=== PATIENT | female | born 1970 | race Caucasian/White ===

== ENCOUNTER 2017-10-27 05:45 | Inpatient (IN) ==
[2017-10-27] MEDS ORDERED: Nasal Sanitizer POPSWAB ampule 3 AMP (Nozin) PREOP DOSE ENOS SCH (06:00)
[2017-10-27] MEDS ORDERED: Lactated Ringers 1,000 ML PRIMARY IV ONE ×3 (06:00→15:28)
[2017-10-27] MEDS ORDERED: LIDOCAINE W/ SODIUM BICARB 0.5 ML SYR SUBD ONE (06:00)
[2017-10-27] MEDS ORDERED: ceFAZolin Inj 2gm (Premix) 2 GM/50 ML BAG IV ONE ×2 (06:00→06:09)
[2017-10-27] MEDS ORDERED: LIDOCAINE W/ SODIUM BICARB 0.5 ML SYR ONE (06:09)
[2017-10-27] MEDS ORDERED: Vancomycin Inj 1gm vial ONE ×3 (06:09→13:51)
[2017-10-27] MEDS ORDERED: Sodium Chloride 0.9% 0 ML IV ONE (06:09)
[2017-10-27 06:21] LABS: URINE SPECIFIC GRAVITY - MAN 1.015
[2017-10-27] MEDS ORDERED: Sodium Chloride 0.9% 250 ML ONE ×2 (06:25→10:56)
[2017-10-27] MEDS ORDERED: ATROPINE SULFATE 0.4 MG/1 ML VIAL IVP PRN (06:37)
[2017-10-27] MEDS ORDERED: LIDOCAINE W/ SODIUM BICARB 0.5 ML SYR SUBD PRN (06:37)
[2017-10-27] MEDS ORDERED: Ondansetron ODT Tab 8 MG TAB PO PRN (06:37)
[2017-10-27] MEDS ORDERED: ONDANSETRON 4 MG/2 ML VIAL IVP PRN ×2 (06:37→17:24)
[2017-10-27] MEDS ORDERED: fentaNYL Inj 100 MCG/2 ML VIAL IVP PRN (06:37)
[2017-10-27] MEDS ORDERED: IPRATROPIUM/ALBUTEROL SULFATE 3 ML NEB NEB ONE (06:37)
[2017-10-27] MEDS ORDERED: Acetaminophen 1000mg Inj 1,000 MG/100 ML VIAL IV ONE (06:38)
[2017-10-27] MEDS ORDERED: Sodium Chloride 0.9% vial 40 ML ONE (06:43)
[2017-10-27] MEDS ORDERED: fentaNYL Inj 250 MCG/5 ML VIAL ONE (06:44)
[2017-10-27] MEDS ORDERED: MIDAZOLAM 5 MG/1 ML ONE (06:44)
[2017-10-27] MEDS ORDERED: REMIFENTANIL 1 MG/1 ML IV ONE ×3 (06:44→13:06)
[2017-10-27] MEDS ORDERED: Gentamicin Inj 40 MG/ML VIAL ONE ×2 (06:44→13:51)
[2017-10-27] MEDS ORDERED: BACITRACIN 50,000 UNIT VIAL IRRIG ONE ×5 (06:44→13:51)
[2017-10-27] MEDS ORDERED: Sodium Chloride 0.9% vial 10 ML ONE ×4 (06:45→13:40)
[2017-10-27] MEDS ORDERED: LIDOCAINE MPF 2% - 5 ML (20 MG/1 ML) ONE (06:52)
[2017-10-27] MEDS ORDERED: Propofol 2,000 MG/200 ML VIAL IV ONE (06:58)
--- NOTE | 2017-10-27 07:00 | EKG ---
[address] [address] Measurements Intervals [place] Rate: 54 P: 58 ID: [id number] QRS: 49 QRSD: 108 T: 45 QT: 441 QTc: 427 Interpretive Statements SINUS BRADYCARDIA WITH SINUS ARRHYTHMIA No previous ECG available for comparison Electronically Signed On 10-27-17 09:19:37 MDT by Ilya Johnson MD [email or web address]
[2017-10-27] MEDS ORDERED: ROCURONIUM 10 MG/1 ML - 5 ML VIAL IVP ONE (07:10)
[2017-10-27] MEDS ORDERED: KETAMINE 100 MG/1 ML - 5 ML ONE (07:15)
[2017-10-27] MEDS ORDERED: BUPIVACAINE 0.25% W/ EPI - 10 ML VIAL ONE ×2 (08:14→08:42)
[2017-10-27] MEDS ORDERED: ePHEDrine Inj 50 MG/ML AMP ONE (08:26)
[2017-10-27] MEDS ORDERED: Propofol 1,000 MG/100 ML VIAL IV ONE ×2 (10:39→13:22)
[2017-10-27] MEDS ORDERED: Sodium Chloride 0.9% vial 20 ML ONE (13:51)
[2017-10-27] MEDS ORDERED: Lactated Ringers 2,000 ML PRIMARY IV ONE (14:01)
[2017-10-27] MEDS ORDERED: HYDROmorphone 2 MG/1 ML ONE (15:33)
[2017-10-27] MEDS: HYDROmorphone 2 MG/1 ML IVP PRN ×3 (15:44→16:20)
--- NOTE | 2017-10-27 15:54 | GEN.OPNOTE ---
Operative Note Surgery Date: 10/27/17 Preoperative Diagnosis: 1.) Chronic low back pain. 2.) Chronic right leg pain. 3.) Multilevel degenerative disc disease; L3-4, L4-5, L5-S1. 4.) Multilevel lumbar spondylosis; facet arthopathy L3-4 , L4-5, L5-S1. 5.) Bilateral L5-S1 neuroforaminal stenosis. Postoperative Diagnosis: Same. Procedure: 1.) Partial laminectomy of L3 with medial facetectomies and proximal foraminotomies bilaterally. 2.) Complete laminectomy of L4 with medial facetecomies and proximal foraminotomies bilaterally. 3.) Complete laminectomy of L4 with medial facetectomies and proximal foraminotomies bilaterally. 4.) L3 -4 discectomy with arthrodesis of the L3 and L4 endplates in preparation for fusion of the anterior aspect of the spinal column at the L3-4 level from a posterior approach. 5.) L4-5 discectomy with arthrodesis of the L4 and L5 endplates in preparation for fusion of the anterior aspect of the spinal column at the L4-5 level from a posterior approach. 6.) L5-S1 discectomy with arthrodesis of the L5 and S1 endplates in preparation for fusion of the anterior aspect of the spinal column at the L5-S1 level from a posterior approach. 7.) Insertion of a 11mm x 11mm x 26mm Tritanium PL machined titanium cage filled in the center with autograft into the L3-4 interspace for fusion of the L3-4 interspace. 8.) Insertion of a 11mm x 11mm x 26mm Tritanium PL machined titanium cage filled in the center with autograft into the L4-5 interspace for fusion of the L4-5 interspace. 9.) Insertion of a 10mm x 11mm x 26mm Tritanium PL machined titanium cage filled in the center with autograft into the L5-S1 interspace for fusion of the L5-S1 interspace. 10.) Posterolateral arthrodesis, L3-4 bilaterally in preparation for posterolateral fusion. 11.) Posterolateral arthrodesis, L4-5 bilaterally in preparation for posterolateral fusion. 12.) Posterolateral arthrodesis, L5-S1 bilaterally in preparation for posterolateral fusion. 13.) Posterolateral instrumention L3-S1 bilaterally using the [employer] Lisa 3 pedicle screw and marlo system. 14.) Use of autograft harvested from the same incision, cleaned of soft tissue and morselized for the interbody and posterolateral fusion portions of the procedure. 15.) Use of 20cc of Karine Vitoss synthetic bone product (allograft ) for posterolateral fusion. 16.) Use of 5cc of Cerapedics I-factor sythetic bone product (allograft) for interbody and posterolateral fusion. 17.) Use of 20cc of [place] BIO DBM PLUS putty w/cancellous (allograft) for interbody and posterolateral fusion. 18.) Use of intra-operative [employer] neuronavigation system for placement and confirmation of the correct placement of all pedicle screws. 19.) Use of intra-operative fluoroscopy for localization of correct surgical levels and for final confirmation of the position of the intervertebral cages and final confirmation of the posterolateral hardware elements. 20.) Use of intra-operative neuromonitoring to assure correct placement of pedicle screws without close proximity to nerve structure. Surgeon: Isaiah Jeffery MD Manager Financial Services: KEVAN Perez Anesthesia Provider: Laila Spann CRNA Anesthesia Type: General Estimated Blood Loss (mL): 800 Fluids: 3000 cc Lactated Ringers. 500 cc Hespan Pathology: None. Indications: Chronic low back pain. Multilevel lumbar degenerative changes. Failure of non-operative therapies to adequately or durable address symptoms. Findings: Multilevel facet arthropathy/hypertrophy most advanced L4-5. Scar tissue tethering of right L5 and S1 nerve roots to surrounding structure ( disc/pedicle/bony canal). Bilateral lateral recess stenosis secondary to bony arthropathy and ligamentous hypertrophy, greater then expected by pre-operative imaging. Complications: None. Operative Summary: Ms. Alamo was met in the preoperative area. The procedure to be performed was confirmed with Ms. Alamo and her and they were in agreement on the procedure to be performed. Any questions that they had were answered before she was taken back to the operating room suite. Mrs. Alamo was brought back to the operating room suite. She was put in under general anesthesia and intubated by the anesthesia staff. She had a Rosales catheter placed or bladder for the procedure. She had pneumatic compression hose placed on her lower legs bilaterally. Ms. Alamo was carefully rolled over onto the Fernando surgical table with her arms gently positioned upwards with her shoulders abducted less than 90. Her arms were well-padded with foam padding on top of the padding of the surgical armboards. Her chest and axilla was checked to make sure that there was no pressure over the region of the brachial plexus bilaterally. Her breasts were checked be below the chest. The Fernando table no pressure points of the nipples. Her Rosales catheter was checked be free from kinks. Her pneumatic compression hose was attached and pneumatic compression device. The C-arm fluoroscopy was used to help localize the skin incision for the approach to the intended surgical levels. The intended skin incision was demarcated with a skin marker incorporating her surgical incision from her previous lumbar surgical procedures. She was prepped and draped in the usual and standard fashion. She was given 2 g of Ancef and a gram of vancomycin IV for perioperative antibiosis. She was given 10 mg of Decadron IV. A standard surgical timeout was performed identifying the correct patient, the patient's symptoms, the correct procedure, and the correct equipment available for the procedure. The intended skin incision was injected subcutaneously with quarter percent Marcaine with 1 200,000 epinephrine. The skin was incised with a 10 blade scalpel and all dermal and superficial bleeding points were controlled with bipolar cautery. The dissection was continued through the subcutaneous tissue down to the lumbosacral fascia. The lumbosacral fascia was incised along the borders of the spinous processes and subperiosteal dissection was performed down the spinous processes and out over out over the lamina. When the inferior aspect of the lamina became identified, a [place] 4 was placed underneath the lamina and the level was identified using lateral fluoroscopy. Continued dissection was performed in a subperiosteal fashion with the final exposure being from the L2 lamina to the upper part of the sacrum bilaterally as well as some out laterally over the L2-3 L3-4 L4-5 and L5-S1 facet joints as well as the L3 L4 L5 transverse processes and the sacral alar bilaterally. The soft tissue was cleaned over the posterior aspect of the spine using Bovie cautery and a large Leksell rongeur. Extensive decortication was then performed of the lateral aspect of the L2-3 facet joint bilaterally and the posterior and lateral aspects of the L3-4 L4-5 and L5-S1 facet joints bilaterally as well as the L3-L4 and L5 transverse processes and the sacral alar bilaterally. The decortication was performed with the [employer] Rick high- speed drill with a matchstick bit. The bone dust created was collected and saved to be used as autograft for the fusion portion of the procedure. The [employer] neuro navigation reference arc was securely attached to the L2 spinous process and a spin was performed with the Lycera fluoroscopy unit and [employer] neuro navigation system. The [employer] neuro navigation pedicle probe was then used to cannulate the L3, L4, L5, and S1 pedicles bilaterally. The internal aspect of the pedicles were palpated with a ball-tip instrument a sure that there were no cortical breaches. The pedicles were then palpated with the appropriate size [place] Martin 3 pedicle tap. The internal aspects of the pedicles were then palpated again with a small ball-tip instrument. The pedicle screws are then placed. 6.5 x 60 mm pedicle screws were placed into the L3 and L4 pedicles bilaterally. 7.5 x 55 mm pedicle screws are placed into the L5 pedicles bilaterally. 7.5 x 50 mm pedicles screws were placed into the sacrum bilaterally. All pedicle screws obtained good purchase in the pedicle and vertebral body bone at each level bilaterally. The pedicle screws are then all interrogated with triggered EMGs. All demonstrated to be of sufficiently high impedance indicating that there were not close proximity to nerve structures. All screws were 24 mA or higher in impedance. Another spin was performed at the 3-D fluoroscopy unit providing further confirmation that the pedicle screws were indeed contained within the pedicles at each level bilaterally and the pedicle screws were bi-cortical or nearly bi-cortical in purchase as intended. Attention was turned to the decompression portion of the procedure. The L4, L5 , and the caudal aspect of the L3 spinous processes were removed with a large Leksell rongeur. A partial laminectomy of L3, and complete laminectomies of L4 and L5 were performed. Medial facetectomies and proximal foraminotomies were performed at each level. Surgical findings included facet arthropathy and hypertrophy at L3-4 L4-5 and L5-S1 most advanced and hypertrophied at L4-5 bilaterally. There was bilateral lateral recess stenosis secondary to bonyu arthropathy and ligamentous hypertrophy, greater than expected based on the preoperative imaging. There was scar tissue tethering the right L5 and S1 nerve roots to the surrounding structures including the L5-S1 disc space, the S1 pedicle, and the posterior aspect of the L5 vertebral body and posterior aspect of the S1 vertebral body. The nerve roots were completely detached from their scarred tissue attachments. The medial facetectomies at L3-4 ,L4-5, and L5-S1 on the left were extended laterally to provide the proper exposure needed for the discectomy and interbody fusion portions of the procedure at these levels. This was performed with a high-speed drill with a matchstick bit. A [place] 4 instrument was then used to carefully dissect the soft tissue adjacent to the takeoffs of the L4, L5, and S1 nerve roots identifying respectively the L3-4 L4-5 and L5-S1 disc spaces. The transversing nerve roots at each level and the thecal sac were gently retracted with a Estephania'Amy nerve root retractor. Epidural veins over the disc space at each level were coagulated with bipolar cautery turned down to a low setting and were then cut with microscissors. Annulotomy was then performed in the L3-4 L4-5 and L5-S1 disc spaces on the left with a 15 blade scalpel. Disc material was removed from each shot disc space with the pituitary rongeur. Additional disc and cartilaginous endplate was removed at each level with the K2 disc space sabine starting with a 7 mm disc space shaver and increasing in 1 mm increments to a 10 mm disc space shaver at the L3-4 level and L4-5 level and to a 9 mm disc space shaver at the L5-S1 level. The large down-biting curet was then used to loosen disc laterally in each of the disc spaces bilaterally but the fragments being removed with a pituitary rongeur. The large down-biting Mahsa curette was then used to decorticate the L3 and L4 endplates at the L3-4 level, the L4 and L5 endplates at the L4-5 level, and the L5 and S1 endplates at the L5-S1 level. The spaces were irrigated out with bacitracin irrigation. Approximately 3-3 and half cc of a mixture of surgery. Factor synthetic bone product mixed with [place] BIO DBM plus putty with cancellous chips was placed into each interspace and moved anteriorly with a bone tamp. He proper size lumbar interbody cages were selected for each level. A 11 mm x 11 mm x [address] lumbar interbody cage was selected for the L3-4 level. The machined cage was filled in the center with autograft. The cage was then inserted into the L3-4 interspace using the insulation board head saw operator. The cage was gently countersunk and rotated with a bone tamp and mallet. The cage obtained good purchase between the L3 and L4 endplates. The final position of the cage was confirmed with lateral fluoroscopy. A 11 mm x 11 mm x [address] lumbar interbody cage was selected for the L4-5 level. The machined cage was filled in the center with autograft. The cage was then inserted into the L4-5 interspace using the insulation board head saw operator. The cage was gently countersunk and rotated with a bone tamp and mallet. The cage obtained good purchase between the L4 and L5 endplates. The final position of the cage was confirmed with lateral fluoroscopy. A 10 mm x 11 mm x [address] lumbar interbody cage was selected for the L5-S1 level. The cage was filled in the center with autograft. The cage was then inserted into the L5-S1 interspace using the insulation board head saw operator. The cage was then gently countersunk and rotated with a bone tamp and mallet. The cage obtained good purchase between L5 and S1 endplates. The final position of the cage was confirmed with lateral fluoroscopy. Attention was then turned back to the instrumentation portion of the procedure. Two 6 mm x 90 mm pre-bent, lumbar lordotic [place] Martin 3 rods were selected and placed into the t[place]ips of the L3 L4 L5 and S1 pedicle screws bilaterally. Set screws were placed over the rods in the tulips of the pedicle screws and were tightened down hand tight and were then tightened down to the final tighteness using the torque counter torque device. The surgical site was then pulse lavaged with 3 L of vancomycin/bacitracin/ gentamicin solution. The surgical site was then irrigated with hydrogen peroxide. Surgical site was then pulse lavaged with another 3 L of vancomycin/ bacitracin/gentamicin solution. The paraspinous musculature was retracted and 10 mL of [place] Vitoss synthetic bone product (allograft) was then placed lateral to the hardware construct from the L3 transverse process to the sacral alar and over the upper part of the sacrum bilaterally. A mixture of the remaining autograft mixed with 30 mL of cancellous bone chips was then splint with half of this product being placed lateral to the hardware construct over the Vitoss synthetic bone product from the L3 transverse process to the sacral alar and over the upper part of the sacrum bilaterally. The remaining mixture of i-factor synthetic bone product ( allograft) mixed with Karine BIO DBM PLUS putty with cancellous chips ( allograft) was then mixed with another 10 mL of Karine BIO DBM PLUS putty with cancellous chips (allograft) and this mixture was split with half of this mixture placed lateral to the hardware construct, over the cancellus bone chips , from the L3 spinous process to the sacral alar and over the upper part of the sacrum bilaterally. The canal and lateral recesses were then inspected for any bone fragments; any identified were removed. The canal and lateral gutters were irrigated with a small amount of bacitracin irrigation which was removed with suction. Surgi- Madan hemostatic agent was placed in the lateral gutters and over all exposed dural elements. A piece of compressed Gelfoam was placed over the canal. A medium Hemovac drain was placed into the the surgical site. The closure portion of the procedure was then begun. The fascia was closed tightly with #1 PDS suture in a interrupted fashion. The surgical site was then irrigated again with bacitracin irrigation. The deep subcutaneous tissue was reapproximated with #1 Vicryl suture in a interrupted fashion. The superficial subcutaneous tissue and dermis was closed with #2-0 Vicryl suture in a inverted interrupted fashion. The Ioban drape was pulled back the skin edges. Final layer. Closure was performed surgical stainless steel moriah. The incision was cleansed with bacitracin soaked sponge and dry sterile dry sponge. The incision was dressed with a Mepilex dressing. The surgical drain was secured with suture. The surgical site drain site was then dressed. All surgical drapes were removed from Ms. Alamo. She was carefully rolled over from the Fernando table onto the PACU stretcher. She was awoken and extubated by the anesthesia staff. She was taken to the recovery room in stable condition. All surgical counts reported as correct by the scrub and circulating personnel. A Physicians Manager Financial Services, Ms. Theresa Anders assisted with the procedure including the exposure and closure portions of the procedure. She also carefully and skillfully retracted the nerve structures during the more critical portions of the procedure such and the discectomy and intervertebral cage placement portions of the procedure.
[2017-10-27] MEDS: Lactated Ringers 1,000 ML PRIMARY IV SCH ×2 (16:00→20:17)
--- NOTE | 2017-10-27 17:01 | CRNA.PROGR ---
Anesthesia Time - Procedure/Recovery Time Start Date: 10/27/17 End Date: 10/27/17 Anesthesia : Time In: 07:42 Anesthesia : Time Out: 15:29 Anesthesia : Total Time: 467 - Total Anesthesia Time Total Anesthesia Time (minutes): 467 - Other Weight: 74.389 kg Height: 5 ft 7 in Body Mass Index (BMI): 25.7 Physical Status: P2 (tobacco) Anesthesia Type: General Anesthesia : ET
--- NOTE | 2017-10-27 17:02 | CRNA.PROGR ---
Anesthesia Recovery Phase I - Post Anesthesia Evaluation Patient's Condition on Arrival in Phase I: Stable Patient's Condition on Arrival in Phase II: Stable (stable) Pain Level: 4
--- NOTE | 2017-10-27 17:02 | CRNA.PROGR ---
Post Anesthesia Phase II - Post Anesthesia Phase II Patient Stable and Discharged To: Med/Surg Care Assumed By Surgeon: Isaiah Jeffery MD Temperature: 96.9 F Pulse Rate: 73 Respiratory Rate: 12 Blood Pressure: 65/52 Pulse Ox: 98 Total Bhakti Score at Discharge: 9 Post Anesthesia Discharge Criteria Met: Yes
[2017-10-27] MEDS ORDERED: MAGNESIUM CITRATE 296 ML SOLUTION PO PRN (17:24)
[2017-10-27] MEDS ORDERED: MAGNESIUM 400 MG/5 ML - 30 ML (MILK OF MAGNESIA) PO PRN (17:24)
[2017-10-27] MEDS ORDERED: Senna Tab 8.6 MG TAB PO PRN (17:24)
[2017-10-27] MEDS ORDERED: oxyCODONE/APAP 10/325 Tab 1 EACH TAB PO PRN (17:24)
[2017-10-27] MEDS ORDERED: Ondansetron ODT Tab 4 MG TAB PO PRN (17:24)
[2017-10-27] MEDS ORDERED: Senna/Docusate Tab 1 TAB TAB PO PRN (17:24)
[2017-10-27] MEDS ORDERED: BISACODYL 5 MG TABLET PO PRN (17:24)
[2017-10-27] MEDS ORDERED: Vancomycin-PHA to Dose IV PRN (17:24)
[2017-10-27] MEDS ORDERED: CYCLOBENZAPRINE 10 MG TABLET PO PRN (17:24)
[2017-10-27] MEDS ORDERED: Sodium Chloride 0.9% 500 ML PRIMARY IV ONE (19:19)
[2017-10-27] MEDS: ceFAZolin Inj 1 GM in Sodium Chloride 0.9% 100 ML IV SCH (19:25)
[2017-10-27 19:47] LABS: Hemoglobin [HGB] 8.6 g/dL (12.0-16.0)
[2017-10-27] MEDS: oxyCODONE/APAP 10/325 Tab 1 EACH TAB PO PRN ×2 (20:04→23:34)
[2017-10-27] MEDS ORDERED: Sodium Chloride 0.9% 1,000 ML PRIMARY IV ONE (22:11)
--- NOTE | 2017-10-27 22:21 | PDOC ---
HPI - History of Present Illness Date of Service: 10/27/17 Time of Service: 22:16 Chief Complaint: Back pain and postoperative History of Present Illness: This very pleasant 46-year-old female who presented here for of lumbar fusion performed by Dr. Jeffery today. Please see his surgical notes for further details of the procedure. It was L3-S1. Postoperatively, the patient states that she's in postsurgical pain but she states that her preoperative pain is almost completely dissipated and gone. She states that she normally run some low blood pressures and has commonly been told that she has systolic pressures in the 90s and low 100s in the time of surgeries. She has had chronic anemia and her hemoglobin was around 8.6 here today. She was given some fluids in efforts to bring up her blood pressure. She is a symptomatically, has no chest pain, no shortness breath, no lightheadedness or dizziness. She details to me that she's had visits with neurology in the past and is been diagnosed with fibromyalgia, complex regional pain syndrome, and chronic pain syndrome. Interestingly, she manages this with no opiates, and is on Cymbalta currently. She has a strong family history of rheumatoid arthritis but has not been worked up extensively for that. I was asked to see the patient in terms of assessing and advising on her depression, hemoglobin, and chronic pain issues in the setting of her back surgery. Past Medical History Medical History: 1. Complex regional pain syndrome. 2. Depression. 3. Chronic low back pain. 4. Tobacco abuse. 5. Possible fibromyalgia. 6. Chronic anemia of unclear etiology. Patient details no prior history of EGD or colonoscopy. Surgical History: 1. Hysterectomy with one ovary removed. 2. Knee scopes. 3. Carpal tunnel syndrome with surgery on the left side. 4. Neck surgery. 5. Back surgery progress. 6. Tonsillectomy and adenoidectomy Pertinent Family History: Significant for degenerative joint disease in her parents. Mother had MS Past Social History: Smokes about a half pack per day. Does not drink alcohol. . Has twins processes biologic children) that are healthy. Has multiple stepchildren and "adopted children" that are DESCRIBED as healthy. She currently does not work but did work for [employer] in [place], [place]. Lives in [place], [place]. Tobacco Use: Current Every Day Smoker In the Past 12 Months, Have Used or Abuse Any of the Following Substance: None Alcohol Use: None Medication / Allergies Home Medications: Home Medications 3 Medication Instructions Recorded Confirmed Type cholecalciferol (vitamin D3) 1,000 250 unit PO QDAY cap 08/25/17 10/27/17 History unit capsule duloxetine 60 mg capsule,delayed 60 mg PO QDAY 08/25/17 10/27/17 History release magnesium 250 mg tablet 500 mg PO QDAY tab 08/25/17 10/27/17 History naproxen sodium 220 mg capsule 220 mg PO BID 08/25/17 10/27/17 History hydrocodone 5 mg-acetaminophen 325 1 tab PO Q4-6H PRN 08/30/17 10/27/17 History mg tablet Duloxetine HCl [Cymbalta] 20 mg PO DAILY 10/27/17 10/27/17 History Allergies/Adverse Reactions: Allergies 3 Allergy/AdvReac Type Severity Reaction Status Date / Time No Known Allergies Allergy Verified 10/27/17 17:32 Review of Systems - Constitutional Constitutional: REPORTS: Diffuse Myalgias (Chronic. States that she has seen a stone breaker before.) - Respiratory Respiratory: REPORTS: Negative System Review - Cardiovascular Cardiovascular: REPORTS: Negative System Review - Gastrointestinal Gastrointestinal / Abdominal: REPORTS: Negative System Review - Genitourinary Genitourinary: REPORTS: Negative System Review - Gynecological Gynecological: REPORTS: Other (The patient thinks that she could be perimenopausal and she is working on this with her primary care physician.) - Hematlogic / Lymphatic Hematologic / Lymphatic: REPORTS: Other (Chronic anemia) - Neurological Neurologic: REPORTS: Headache (Chronic) Exam - Vitals Vital Signs: Vital Signs Vital Signs - Last Taken Temperature 10/27/17 21:00 Pulse Rate 80 10/27/17 21:00 Respiratory Rate 20 10/27/17 21:00 Blood Pressure 86/55 10/27/17 21:00 Pulse Ox 94 10/27/17 21:00 Height 5 ft 7 in Weight 164 lb Selected Entries 10/27/17 19:15 10/27/17 20:25 Temperature 98.7 F 98.5 F - General General Appearance: No Acute Distress, Cooperative - Head Head Exam: Normal Inspection, Normocephalic, Atraumatic - Eye Eye Exam: POSITIVE: No Scleral Icterus - ENT ENT Exam: POSITIVE: Mucous Membranes Moist - Neck Neck Exam: Normal Inspection - Respiratory Respiratory Exam: POSITIVE: Clear to Auscultation - Bilaterally, Breathing Non Labored - Cardiovascular Cardiovascular Exam: POSITIVE: RRR, No Murmur, No Clicks, No Gallops, No Rubs, No JVD - GI/Abdominal GI/Abdominal Exam: POSITIVE: Non Tender, Non Distended, Soft - Rectal Rectal Exam: POSITIVE: Deferred - External Exam: POSITIVE: Deferred Exam: POSITIVE: Deferred - Extremities Extremities Exam: POSITIVE: No Clubbing Present, No Edema Present, No Cyanosis Present - Back Additional Back Exam Details: Lower midline back incision is dressed, Hemovac drain is in place, dressing is clean, dry, intact - Neurological Neurological Exam: POSITIVE: Alert, Oriented x 3, No Facial Droop, Speech Intact / Clear, Moves All Extremities Equally - Psychiatric Psychiatric Exam: POSITIVE: Normal Affect, Normal Mood Results - Labs CBC and BMP: 10/27/17 19:45 Assessment and Plan - Patient Problems (1) Postoperative hypotension Current Visit: Yes Status: Acute Code(s): I95.89 - Other hypotension (2) Complex regional pain syndrome Current Visit: Yes Status: Acute Comment: Patient states that she's had several nerve studies done with Dr. Rock. I do not know the results of those. Qualifiers: Complex regional pain syndrome type: type I Complex regional pain syndrome affected site: unspecified Qualified Code(s): G90.50 - Complex regional pain syndrome I, unspecified (3) Chronic anemia Current Visit: Yes Status: Acute Code(s): D64.9 - Anemia, unspecified (4) Depression Current Visit: Yes Status: Acute Code(s): F32.9 - Major depressive disorder , single episode, unspecified Qualifiers: Depression Type: other depression Qualified Code(s): F32.89 - Other specified depressive episodes (5) Tobacco abuse Current Visit: Yes Status: Acute Code(s): Z72.0 - Tobacco use (6) Tobacco abuse counseling Current Visit: Yes Status: Acute Code(s): Z71.6 - Tobacco abuse counseling - Assessment / Plan Additional Assessment/Plan Details: Terms of the hypotension, I think it's fairly relative and maybe within the patient's normal blood pressure ranges. She is completely asymptomatic. Chronic anemia I do not think this is reflective of blood loss at this time. I would recommend of fluid bolus with normal saline 1 L, and recheck blood pressures. I think we can go ahead and administer IV morphine and continue the patient on a monitor. I'll check CBC in the morning, but I will also had an iron panel, B12 and folate levels. She is had a hysterectomy in the past for fibrocystic disease, and given that she just had surgery, I think we should hold off on thyroid screening, but overall given her age I think she may warrant GI evaluation in the future. I will try to talk to her primary doctor tomorrow if possible to clarify that to further degree. In the meantime, also replace any vitamin deficiencies. Patient is concerned about a potential rheumatoid arthritis story and so I'll do an anti-CCP level and a rheumatoid factor. She is concerned about fibromyalgia and I talked her through the clinical aspects of that diagnosis. This would be an outpatient diagnosis. PT and OT. Given spinal surgery, hold off on DVT prophylaxis with chemical prophylaxis to avoid any complications of hematoma. She has mechanical prophylaxis measures in place. Continue Cymbalta. Thank you for this consult. It will be the hospitalist services pleasure to continue to assess and advise on this patient's medical issues during the hospital stay.
[2017-10-27] MEDS: MORPHINE SULFATE 2 MG/1 ML IVP PRN (22:23)
[2017-10-27] MEDS ORDERED: NICOTINE 14 MG /DAY PATCH TRANSDERM ONE (22:34)
[2017-10-28] MEDS: MORPHINE SULFATE 2 MG/1 ML IVP PRN ×2 (02:06→07:09)
[2017-10-28] MEDS: ceFAZolin Inj 1 GM in Sodium Chloride 0.9% 100 ML IV SCH (02:06)
[2017-10-28] MEDS: oxyCODONE/APAP 10/325 Tab 1 EACH TAB PO PRN ×5 (05:10→21:10)
--- NOTE | 2017-10-28 05:22 | NEURO.PROG ---
Subjective Post Op Day: 1 Pain Management: PO Rosales Catheter: Yes Diet: Regular Ambulating: No Additional Details: Awake and alert. Surgical back pain as expected. Right leg numbness (not new). Heartburn. Denies chest pain, nausea. Moving all extremities well. Full dorsiflexion/plantarflexion bilaterally. PLAN: Continue pain control. To be fitted for a brace(fabric TLSO) today. Rosales catheter out today if up OOB. Continue drain. Repeat Hgb/Hct tomorrow am. Mobilize. Objective : Data - Labs CBC and BMP: 10/27/17 19:45 - Vital Signs Vital Signs and I&O: Vital Signs - Last Taken Temperature 98.0 F 10/28/17 04:50 Pulse Rate 70 10/28/17 04:50 Respiratory Rate 22 10/28/17 04:50 Blood Pressure 81/44 10/28/17 04:50 Pulse Ox 95 10/28/17 04:50 Intake and Output (24hr x 4 totals) 10/25/17 10/26/17 10/27/17 10/28/17 05:59 05:59 05:59 05:59 Intake Total 5120 / 5120 Output Total 3900 / 3900 Balance 1220 / 1220
[2017-10-28 05:56] LABS: BLOOD UREA NITROGEN 10 mg/dL (7-22)
[2017-10-28] MEDS: PANTOPRAZOLE 40 MG TABLET PO SCH (07:09)
[2017-10-28 08:23] LABS: BASOPHILS # (AUTO) 0.02 10*3/UL; BASOPHILS % (AUTO) 0.3 % (0-1); EOSINOPHILS # (AUTO) 0.12 10*3/UL; EOSINOPHILS % (AUTO) 1.7 % (0-8); Hematocrit [HCT] 23.6 % (37.0-47.0); Hemoglobin [HGB] 7.6 g/dL (12.0-16.0); LYMPHOCYTES # (AUTO) 1.57 10*3/uL; MEAN CORPUSCULAR HEMOGLOBIN 32.2 PG (27-31); MEAN CORPUSCULAR HGB CONC 32.2 g/dL (33-37); MEAN PLATELET VOLUME 10.2 FL (7.4-12.2); MONOCYTES # (AUTO) 0.34 10*3/UL (0.3-0.8); MONOCYTES % (AUTO) 4.7 % (5-15); NEUTROPHILS % (AUTO) 71.6 % (50-80); RED BLOOD COUNT 2.36 10^6/uL (4.20-5.40)
[2017-10-28] MEDS: CHOLECALCIFEROL 1000 IU TABLET PO SCH (08:23)
[2017-10-28] MEDS: DULOXETINE 60 MG CAPSULE PO SCH (08:23)
[2017-10-28 08:25] LABS: PLATELET MORPHOLOGY COMMENT NORMAL MORPHOLOGY (NORM); RBC MORPHOLOGY COMMENT NORMAL MORPHOLOGY (NORM); WBC MORPHOLOGY COMMENT NORMAL MORPHOLOGY (NORM)
[2017-10-28] MEDS ORDERED: Patch Removal PATCH TRANSDERM SCH (09:00)
[2017-10-28] MEDS ORDERED: NICOTINE 14 MG /DAY PATCH TRANSDERM SCH (09:00)
[2017-10-28] MEDS ORDERED: DULOXETINE HCL 60 MG PO SCH (09:00)
[2017-10-28] MEDS: POLYETHYLENE GLYCOL 3350 17 GM POWDER PO PRN (09:01)
[2017-10-28] MEDS ORDERED: Sodium Chloride 0.9% 500 ML PRIMARY IV ONE (11:25)
[2017-10-28] MEDS ORDERED: diphenhydrAMINE 25 MG CAPSULE PO ONE (11:25)
[2017-10-28] MEDS ORDERED: predniSONE Tab 20 MG TAB PO ONE (11:25)
[2017-10-28] MEDS ORDERED: ACETAMINOPHEN 325 MG TABLET PO ONE (11:25)
[2017-10-28] MEDS ORDERED: FUROSEMIDE 10 MG/1 ML - 2 ML VIAL IVP ONE (11:25)
[2017-10-28] MEDS: oxyCODONE ER Tab 20 MG TAB PO PRN ×2 (12:09→21:10)
--- NOTE | 2017-10-28 13:57 | CRNA.PROGR ---
Anesthesia Note - Progress Notes Anesthesia Progress Note: Post OP Anesthesia Note Pt is resting in bed. She has been up and ambulating but is not tolerating well R/T low H/H. She is scheduled to get blood this afternoon. She is tolerating a regular diet. She denies any residual problem from the general anesthetic. Current VS are stable. Vital Signs - Last Taken Temperature 98.9 F 10/28/17 13:55 Pulse Rate 86 10/28/17 13:55 Respiratory Rate 16 10/28/17 13:55 Blood Pressure 95/55 10/28/17 13:55 Pulse Ox 97 10/28/17 13:55
--- NOTE | 2017-10-28 14:32 | PTI REPORT ---
Thank you for the referral of Javier Alamo. She was seen on 10/28/17 for an inpatient evaluation status post back fusion. SUBJECTIVE: The patient is a 46-year-old female who lives in [place] who underwent a back fusion yesterday by Dr. Jeffery. The patient was seen in her room this morning complaining of a pain level of 9/10 on the verbal analog scale (0=no pain, 10=worst pain). The patient does live in a bi-level house. We will have to make sure that she is independent in navigating stairs independently. PAST MEDICAL HISTORY: Past medical history can be found in the patient's medical record. OBJECTIVE FINDINGS: Bed mobility/Transfers: The patient needed minimal to assist of one to go from supine to sit and sit to stand. Ambulation: The patient ambulated to the hallway and back with her brace and a walker. Pain: Pain is the patient's limiting factor at this point. She rates her pain as a 9/10 on the verbal analog scale (0=no pain, 10=worst pain). Range of motion: Lower extremity range of motion is within normal limits. She had good dorsiflexion and toe extension with good pulses in both feet. ASSESSMENT: Problem List: Increased pain Decreased ability to complete transfers Decreased ability to complete ambulation Short-Term Goals: To be met by discharge from inpatient: Patient will be able to transfer from bed to stand independently. Patient will be able to ambulate 100 feet independently with least restrictive assistive device. Patient will be able to ascend and descend one flight of stairs with least restrictive assistive device. Long-Term Goals: To be met following discharge from inpatient: Patient will be able to return home to [place] with her . TREATMENT PLAN: Patient will be seen B.I.D during the week and one time per day over the weekend as an inpatient for transfer training, ambulation, pain control, and bracing. INITIAL TREATMENT: Treatment today consisted of the initial evaluation activities only. ERICK
--- NOTE | 2017-10-28 14:49 | PTI REPORT ---
Thank you for the referral of Javier Alamo. She was seen on 10/28/17 for an occupational therapy inpatient evaluation status post lumbar fusion. SUBJECTIVE: The patient is a 46-year-old female who had a lumbar fusion. Prior to admission the patient lived with her in [place] and was independent with all ADLs and functional activities. The patient reports today that she is in a lot of pain. PAST MEDICAL HISTORY: Past medical history can be found in the patient's medical record. OBJECTIVE FINDINGS: General observations: The patient was sitting in chair upon the therapist's arrival. Her blood pressure has been running low and nursing stated that her H& H has been very low. The therapist checked the patient's blood pressure and it was 83/52. Her oxygen was at 95%. Her back brace was on. Range of motion: Active range of motion of upper extremities is within normal limits. Strength: Strength was not assessed secondary to her back precautions and lifting precautions. Activities of daily living: The patient was issued a dietetic technician, sock aide, and shoe horn and demonstration was given; however, the patient's pain level was an 8/10 and she did not want to attempt these at this time. Transfers: The patient requires mod to max assist to come from sit to stand off of the chair. She has a lot of weakness in her upper extremities and she states that her back pain is pretty extreme once she stands up. Once standing, the patient was able to move to the edge of the bed and sit down with the bed in a higher position. Bed mobility: The patient required max assist to move lower extremities to complete her log roll into the bed. She did have the head of the bed raised approximately 45 degrees. ASSESSMENT: Problem List: Increased pain Decreased ability to complete ADLs Decreased ability to complete functional transfers and bed mobility Short-Term Goals: To be met by discharge from inpatient: Patient will be able to complete dressing tasks with min assist. Patient will be able to complete a toilet transfer and toilet hygiene with contact guard assist. Patient will be able to complete a chair transfer with contact guard assist. Patient will be able to complete bed mobility and log rolls into bed with stand by assist. Long-Term Goals: To be met following discharge from inpatient: Patient will demonstrate modified independence with use of adaptive equipment for all lower extremity dressing tasks independently. TREATMENT PLAN: Patient will be seen B.I.D during the week and one time per day over the weekend as an inpatient to address the above goals and objectives. INITIAL TREATMENT: Treatment today consisted of the initial evaluation followed by a functional transfer from chair to stand and stand to bed, all with mod to max assist. The patient was issued adaptive device for improved independence with dressing self as the patient is not to bend over 90 degrees. [facility]
--- NOTE | 2017-10-28 15:39 | PT.PROG ---
Progress Note Progress Note: Patient was receiving a blood transfusion this afternoon therefore was not seen by therapy.
--- NOTE | 2017-10-28 17:13 | PDOC(PROG) ---
Date of Service: 10/28/17 Time of Service: 11:10 Interval History: No complaints of chest pain, shortness breath, nausea or vomiting. Still has bad postsurgical pain. She was placed on higher doses of oxycodone/OxyContin. Her hemoglobin was noted, and I think in a patient with chronic anemia, it may be worth doing blood transfusion and we discussed this at bedside and she agreed. She has never had any EGD or colonoscopy. Objective : Data - Labs CBC and BMP: 10/28/17 04:25 10/28/17 04:25 Additional Lab Results: 10/28/17 10/28/17 04:25 04:25 Iron 44 TIBC 203 L % Saturation 0 L Vitamin B12 Pending Vitamin D 25-Hydroxy 59.1 Serum Folate Pending Objective : Exam - General General Appearance: No Acute Distress, Cooperative Additional General Exam Details: Vital Signs - Last Taken Temperature 98.2 F 10/28/17 17:09 Pulse Rate 67 10/28/17 17:09 Respiratory Rate 16 10/28/17 17:09 Blood Pressure 98/58 10/28/17 17:09 Pulse Ox 96 10/28/17 17:09 - Eye Eye Exam: No Scleral Icterus - ENT ENT Exam: Mucous Membranes Moist - Respiratory Respiratory Exam: Clear to Auscultation - Bilaterally, Breathing Non Labored - Cardiovascular Cardiovascular Exam: RRR, No Murmur, No Clicks, No Gallops, No Rubs, No JVD - GI/Abdominal GI/Abdominal Exam: Normal Bowel Sounds, Non Tender, Non Distended, Soft - Extremities Extremities Exam: No Clubbing Present, No Edema Present, No Cyanosis Present - Neurological Neurological Exam: Alert, Oriented x 3, No Facial Droop, Speech Intact / Clear, Moves All Extremities Equally Assessment and Plan - Patient Problems (1) Postoperative hypotension Current Visit: Yes Status: Acute Code(s): I95.89 - Other hypotension (2) Complex regional pain syndrome Current Visit: Yes Status: Acute Qualifiers: Complex regional pain syndrome type: type I Complex regional pain syndrome affected site: unspecified Qualified Code(s): G90.50 - Complex regional pain syndrome I, unspecified (3) Chronic anemia Current Visit: Yes Status: Acute Code(s): D64.9 - Anemia, unspecified (4) Depression Current Visit: Yes Status: Acute Code(s): F32.9 - Major depressive disorder , single episode, unspecified Qualifiers: Depression Type: other depression Qualified Code(s): F32.89 - Other specified depressive episodes (5) Tobacco abuse Current Visit: Yes Status: Acute Code(s): Z72.0 - Tobacco use (6) Tobacco abuse counseling Current Visit: Yes Status: Acute Code(s): Z71.6 - Tobacco abuse counseling - Assessment / Plan Additional Assessment/Plan Details: Would benefit from an EGD and colonoscopy in the next few months after she heals from the surgery to the evaluate for potential GI blood loss with chronic anemia. Although the iron level is normal at 44, it is a low normal and this really looks like iron deficiency anemia. If that study is negative, I think a hematology consultation for chronic anemia would be in order. I discussed this with the patient and her at bedside. Transfuse 2 units of blood today. CBC in a.m. Awaiting B12 and folate levels. I did do additional labs including a CCP antibody, rheumatoid factor, she is concerned about whether or not she might have rheumatoid arthritis. Her hypertension seems to be a chronic issue. I don't think Midorin at this point as she is not having any presyncopal symptoms, but that could always be considered in the future should she remain relatively hypotensive. She does not appear septic at all. She is asymptomatic other than being somewhat fatigued from her hypotension today. PT and OT.
[2017-10-28] MEDS: DOCUSATE 100 MG CAPSULE PO PRN (21:10)
[2017-10-28] MEDS: Patch Removal PATCH TRANSDERM SCH (21:10)
[2017-10-28] MEDS: NICOTINE 14 MG /DAY PATCH TRANSDERM SCH (21:10)
[2017-10-29] MEDS: oxyCODONE/APAP 10/325 Tab 1 EACH TAB PO PRN ×6 (01:16→20:55)
[2017-10-29 04:18] LABS: Hematocrit [HCT] 31.9 % (37.0-47.0); Hemoglobin [HGB] 10.4 g/dL (12.0-16.0)
[2017-10-29] MEDS: PANTOPRAZOLE 40 MG TABLET PO SCH (06:51)
--- NOTE | 2017-10-29 07:13 | NEURO.PROG ---
Subjective Post Op Day: 2 Pain Management: PO Rosales Catheter: Yes Diet: Regular Ambulating: Yes Additional Details: Awake and alert. Appears comfortable in bed. Surgical pain as expected; states she is more comfortable today. Right leg symptoms improved with surgery. Moving all extremities well. Drain - 200 cc. PLAN: 1.) Continue post-operative pain control. 2.) Continue to mobilize. Objective : Data - Labs CBC and BMP: 10/29/17 03:55 10/28/17 04:25 - Vital Signs Vital Signs and I&O: Vital Signs - Last Taken Temperature 97.9 F 10/29/17 05:00 Pulse Rate 59 L 10/29/17 05:00 Respiratory Rate 14 10/29/17 07:00 Blood Pressure 112/63 10/29/17 05:00 Pulse Ox 96 10/29/17 05:00 Intake and Output (24hr x 4 totals) 10/27/17 10/28/17 10/29/17 10/30/17 05:59 05:59 05:59 05:59 Intake Total 5120 / 5120 5201 / 5201 Output Total 3900 / 3900 4840 / 4840 Balance 1220 / 1220 361 / 361
[2017-10-29] MEDS: POLYETHYLENE GLYCOL 3350 17 GM POWDER PO PRN (08:34)
[2017-10-29] MEDS: DULOXETINE 60 MG CAPSULE PO SCH (08:34)
[2017-10-29] MEDS: oxyCODONE ER Tab 20 MG TAB PO PRN ×2 (08:35→20:55)
[2017-10-29] MEDS: CHOLECALCIFEROL 1000 IU TABLET PO SCH (08:35)
[2017-10-29] MEDS: DOCUSATE 100 MG CAPSULE PO PRN ×2 (08:35→22:07)
--- NOTE | 2017-10-29 10:24 | OT.PROG ---
Progress Note Progress Note: S: pt stated she was doing well today and wanted to get dressed. O: tx consisted of education of millwright apprentice, sock aide and long handled shoe horn for ADL task of dressing and precautions to follow while dressing. pt demonstrated understanding of use of adaptive equipment by donning pants with millwright apprentice and not bending past 90 degrees while doing so. pt donned bra and shirt independently. pt educated on donning and doffing back brace for dressing and pt demonstrated understanding by doffing it and donning it independently. pt completed bed mobility from EOB to supine with SBA for safety. pt was educated on how to use long handled shoe horn but did not demonstrate use due to pt not wanting to put on shoes. A: pt has used sock aide from previous back surgeries and verbalized use of sock aide. P: continue POC
--- NOTE | 2017-10-29 11:43 | PT.PROG ---
Progress Note Progress Note: S. Patient stated that she still has some pain however is feeling much better. O. Patient ambulated 150 feet around the nurses station. then was left in her room where she was left at the edge of bed. A. Patient tolerated ambulation well, Patient was able to ambulate full distance with ease and without assistive device. Patient will perform stair training this afternoon. P. continue POC.
--- NOTE | 2017-10-29 12:58 | PDOC(PROG) ---
Date of Service: 10/29/17 Time of Service: 12:54 Interval History: No chest pains, shortness breath, nausea or vomiting. Pain is under better control. Was very reassured to see a negative rheumatoid factor. Wondered about her thyroid function as well. In terms of her anemia, I think she should have an EGD and colonoscopy done and she does appear to have iron deficiency anemia with workup. She has a low-normal vitamin B12 and I'll start her on some B12 supplementation. She says she feels more energetic today, blood pressures have been in the low 100s today, and she's been able to participate in therapy today. Objective : Data - Labs CBC and BMP: 10/29/17 03:55 10/28/17 04:25 Additional Lab Results: 10/28/17 10/28/17 10/28/17 04:25 04:25 04:25 Hgb 7.6 L Hct 23.6 L Iron 44 TIBC 203 L % Saturation 0 L Vitamin B12 266 Vitamin D 25-Hydroxy 59.1 Serum Folate 5.43 Rheumatoid Factor 10/28/17 10/29/17 06:00 03:55 Hgb 10.4 L Hct 31.9 L Iron TIBC % Saturation Vitamin B12 Vitamin D 25-Hydroxy Serum Folate Rheumatoid Factor < 8.6 Objective : Exam - General General Appearance: No Acute Distress, Cooperative Additional General Exam Details: Vital Signs - Last Taken Temperature 98.2 F 10/29/17 11:45 Pulse Rate 102 H 10/29/17 11:45 Respiratory Rate 16 10/29/17 11:45 Blood Pressure 100/57 10/29/17 11:45 Pulse Ox 94 10/29/17 11:45 - Eye Eye Exam: No Scleral Icterus - ENT ENT Exam: Mucous Membranes Moist - Respiratory Respiratory Exam: Clear to Auscultation - Bilaterally, Breathing Non Labored - Cardiovascular Cardiovascular Exam: RRR, No Murmur, No Clicks, No Gallops, No Rubs, No JVD - GI/Abdominal GI/Abdominal Exam: Non Tender, Non Distended, Soft - Extremities Extremities Exam: No Clubbing Present, No Edema Present, No Cyanosis Present - Neurological Neurological Exam: Alert, Oriented x 3, Normal Gait (Gait is as to be expected post surgery. She ambulated well with therapy today.), No Facial Droop, Speech Intact / Clear, Moves All Extremities Equally Assessment and Plan - Patient Problems (1) Chronic anemia Current Visit: Yes Status: Acute Code(s): D64.9 - Anemia, unspecified (2) Complex regional pain syndrome Current Visit: Yes Status: Acute Qualifiers: Complex regional pain syndrome type: type I Complex regional pain syndrome affected site: unspecified Qualified Code(s): G90.50 - Complex regional pain syndrome I, unspecified (3) Depression Current Visit: Yes Status: Acute Code(s): F32.9 - Major depressive disorder , single episode, unspecified Qualifiers: Depression Type: other depression Qualified Code(s): F32.89 - Other specified depressive episodes (4) Tobacco abuse Current Visit: Yes Status: Acute Code(s): Z72.0 - Tobacco use (5) Tobacco abuse counseling Current Visit: Yes Status: Acute Code(s): Z71.6 - Tobacco abuse counseling (6) Postoperative hypotension Current Visit: Yes Status: Resolved Code(s): I95.89 - Other hypotension - Assessment / Plan Additional Assessment/Plan Details: Given iron deficiency anemia, when she recovers from her back surgery, I think the patient should have an EGD and colonoscopy to explore further. With the worth starting the patient on iron supplementation. Vitamin B12 is on low normal state. She would benefit from B12 as well. CBC in a.m. If okay, I would be okay from a medical standpoint for this patient to discharge when cleared by neurosurgery.
--- NOTE | 2017-10-29 16:29 | PT.PROG ---
Progress Note Progress Note: S. Patient stated that she is feeling good this afternoon. O. Patient ambulated 150 feet around the nurses station then ascended and descended 11 stairs. Patient then ambulated 80 feet back to her room where she was left in her chair. A. Patient tolerated ambulation and stair training well this afternoon, she has met all goals at this time. Patient's requested to perform car transfers with therapy tomorrow before discharge. P. Patient is cleared from PT at this time.
[2017-10-29] MEDS: NICOTINE 14 MG /DAY PATCH TRANSDERM SCH (20:55)
[2017-10-29] MEDS: Patch Removal PATCH TRANSDERM SCH (20:56)
[2017-10-30] MEDS: oxyCODONE/APAP 10/325 Tab 1 EACH TAB PO PRN ×4 (00:52→12:36)
[2017-10-30 04:54] LABS: Hematocrit [HCT] 29.7 % (37.0-47.0); Hemoglobin [HGB] 9.5 g/dL (12.0-16.0); MEAN CORPUSCULAR HEMOGLOBIN 31.1 PG (27-31); MEAN CORPUSCULAR VOLUME 97.4 FL (81-99); MEAN PLATELET VOLUME 10.2 FL (7.4-12.2); RED BLOOD COUNT 3.05 10^6/uL (4.20-5.40)
[2017-10-30] MEDS: PANTOPRAZOLE 40 MG TABLET PO SCH (06:39)
--- NOTE | 2017-10-30 08:02 | NEURO.PROG ---
Subjective Post Op Day: 3 Pain Management: PO Rosales Catheter: No Flatus: Yes Diet: Regular Ambulating: Yes Additional Details: Awake, alert and up in the room. VSS, afebrile Requiring max PO pain meds, comfortable, doing well with PT Bilateral Knee flexion, dorsi and plantar flexion all strong. Rt leg parasthesias continue to improve. Incision dry and without erythema. H&H 9.5/29.7 Drainage 140 serosang/12 hours. Plan is to discontinue drain, give wound care instructions, and is cleared for discharge from Neuro standpoint. Dr. Jeffery's office will call patient for 2 wk follow up appointment in [place]. Objective : Data - Labs CBC and BMP: 10/30/17 04:27 10/28/17 04:25 - Vital Signs Vital Signs and I&O: Vital Signs - Last Taken Temperature 97.7 F 10/30/17 04:52 Pulse Rate 73 10/30/17 04:52 Respiratory Rate 16 10/30/17 07:00 Blood Pressure 93/51 10/30/17 04:52 Pulse Ox 92 10/30/17 04:52 Intake and Output (24hr x 4 totals) 10/28/17 10/29/17 10/30/17 10/31/17 05:59 05:59 05:59 05:59 Intake Total 5120 / 5120 5201 / 5201 2200 / 2200 Output Total 3900 / 3900 4840 / 4840 1715 / 1715 Balance 1220 / 1220 361 / 361 485 / 485
[2017-10-30] MEDS: oxyCODONE ER Tab 20 MG TAB PO PRN (08:41)
[2017-10-30] MEDS: DULOXETINE 60 MG CAPSULE PO SCH (08:41)
[2017-10-30] MEDS: CHOLECALCIFEROL 1000 IU TABLET PO SCH (08:41)
[2017-10-30] MEDS ORDERED: FERROUS SULFATE 325 MG TABLET PO SCH (09:00)
[2017-10-30] MEDS ORDERED: CYANOCOBALAMIN (VITAMIN B-12) 1,000 MCG TABLET.ER PO SCH (09:00)
[2017-10-30 09:05] VITALS: RESP 18; TEMP 97.8
[2017-10-30 11:37] VITALS: BP 104/55; O2SAT 98
--- NOTE | 2017-10-30 12:36 | DCSUMMARY ---
Hospitalization Summary Admit Date: 10/27/2017 Discharge Date: 10/30/17 Primary Diagnosis:: status post low back surgery. Hospital Course: Very pleasant 46-year-old female who had chronic low back pain. She had surgery done by Dr. Jeffery. See his surgical note regarding the procedure involved. The patient postoperatively recovered very well. Her pain was well- controlled, and she was able to ambulate, she had a brace fitted, she did very well with PT and OT needs. Her drain was removed prior to discharge. In terms of medical issues, she was maintained on Cymbalta for her depression and her chronic regional pain syndrome. We did find that she has a vitamin B12 deficiency. We placed her on oral vitamin B12 for this. We found that she was iron deficient, she did have an hemoglobin of 7.6 and we did give her 2 units of packed red blood cells in transfusion. This helped her symptomatically significantly. She has normally had low blood pressures, but her systolics did improved to the 100s to 110s after 2 units of blood. We placed her on iron tablets, and advised a CBC to reevaluate in a month. In terms of smoking cessation, we placed her on nicotine patches. The patient did want us to check some labs for rheumatoid arthritis I checked a rheumatoid factor and anti-CCP level. The anti-CCP is pending. She also wanted thyroid screening and I thought that was very reasonable as well and her TSH and free T4 were normal. This was very appropriate in the setting of anemia. Today, no complaints of chest pain, shortness breath, nausea or vomiting. Her back pain is controlled and she would like to go home. Assessment and Plan: 1. As per discharge assessments noted 2. Disposition: Patient is discharged home. 3. Condition on discharge, stable and improved. 4. Diet: regular diet 5. Activities: resume activities as per Dr. Jeffery's instructions 6. Follow-Up: 1. Primary care provider in one week 2. Dr. Jeffery in 2 weeks for postoperative check 7. Medications at the Time of Discharge: Home Medications 3 Medication Instructions Recorded Confirmed Type cholecalciferol (vitamin D3) 1,000 250 unit PO QDAY cap 08/25/17 10/27/17 History unit capsule duloxetine 60 mg capsule,delayed 60 mg PO QDAY 08/25/17 10/27/17 History release magnesium 250 mg tablet 500 mg PO QDAY tab 08/25/17 10/27/17 History Duloxetine HCl [Cymbalta] 20 mg PO DAILY 10/27/17 10/27/17 History Cyanocobalamin (Vitamin B-12) 1,000 mcg PO DAILY #30 tablet.er 10/30/17 Rx [Vitamin B-12] Ferrous Sulfate [Feosol] 325 mg PO DAILY #30 tab 10/30/17 Rx Nicotine 14mg Patch [Nicoderm CQ 1 patch TRANSDERM BEDTIME #30 patch 10/30/17 Rx 14mg Patch] oxyCODONE ER Tab [OxyCONTIN Tab] 20 mg PO BID PRN #20 tab 10/30/17 Rx oxyCODONE/APAP 10/325 Tab 1 - 2 ea PO Q4H PRN #60 tab 10/30/17 Rx [Percocet 10/325 Tab] 8. Time, care, counseling and coordination of care for this discharge is less than 30 minutes. Exam - Vitals Vital Signs: Vital Signs Temperature 97.8 F Temperature Source Oral Pulse Rate [Pulse Oximeter] 58 Pulse Rate 65 Respiratory Rate 18 Blood Pressure [Left Arm] 104/55 Blood Pressure 95/55 Pulse Ox 98 Oxygen Flow Rate 1 Oxygen Delivery Method Room Air Height 5 ft 7 in Weight 174 lb 11.2 oz - General General Appearance: No Acute Distress, Cooperative - Head Head Exam: Normal Inspection, Normocephalic, Atraumatic - Eye Eye Exam: POSITIVE: No Scleral Icterus - ENT ENT Exam: POSITIVE: Mucous Membranes Moist - Respiratory Respiratory Exam: POSITIVE: Clear to Auscultation - Bilaterally, Breathing Non Labored - Cardiovascular Cardiovascular Exam: POSITIVE: RRR, No Murmur, No Clicks, No Gallops, No Rubs, No JVD - GI/Abdominal GI/Abdominal Exam: POSITIVE: Non Tender, Non Distended, Soft - Extremities Extremities Exam: POSITIVE: No Clubbing Present, No Edema Present, No Cyanosis Present - Neurological Neurological Exam: POSITIVE: Alert, Oriented x 3, No Facial Droop, Speech Intact / Clear, Moves All Extremities Equally Data Peritnent Studies: 10/28/17 10/28/17 10/28/17 04:25 04:25 04:25 WBC Hgb 7.6 L Hct 23.6 L Plt Count Sodium 138 Potassium 3.9 Chloride 115 H Carbon Dioxide 23 Anion Gap 0 L BUN 10 Creatinine 0.8 BUN/Creatinine Ratio 12.50 Glucose 87 Calculated Osmolality 283.0 Calcium 7.7 L Iron TIBC % Saturation Vitamin B12 266 Vitamin D 25-Hydroxy 59.1 Serum Folate 5.43 TSH Free T4 Rheumatoid Factor 10/28/17 10/28/17 10/30/17 04:25 06:00 04:27 WBC 7.34 Hgb 9.5 L Hct 29.7 L Plt Count 191 Sodium Potassium Chloride Carbon Dioxide Anion Gap BUN Creatinine BUN/Creatinine Ratio Glucose Calculated Osmolality Calcium Iron 44 TIBC 203 L % Saturation 0 L Vitamin B12 Vitamin D 25-Hydroxy Serum Folate TSH Free T4 Rheumatoid Factor < 8.6 10/30/17 04:27 WBC Hgb Hct Plt Count Sodium Potassium Chloride Carbon Dioxide Anion Gap BUN Creatinine BUN/Creatinine Ratio Glucose Calculated Osmolality Calcium Iron TIBC % Saturation Vitamin B12 Vitamin D 25-Hydroxy Serum Folate TSH 3.98 Free T4 1.10 Rheumatoid Factor Procedures: 1.) Partial laminectomy of L3 with medial facetectomies and proximal foraminotomies bilaterally. 2.) Complete laminectomy of L4 with medial facetecomies and proximal foraminotomies bilaterally. 3.) Complete laminectomy of L4 with medial facetectomies and proximal foraminotomies bilaterally. 4.) L3 -4 discectomy with arthrodesis of the L3 and L4 endplates in preparation for fusion of the anterior aspect of the spinal column at the L3-4 level from a posterior approach. 5.) L4-5 discectomy with arthrodesis of the L4 and L5 endplates in preparation for fusion of the anterior aspect of the spinal column at the L4-5 level from a posterior approach. 6.) L5-S1 discectomy with arthrodesis of the L5 and S1 endplates in preparation for fusion of the anterior aspect of the spinal column at the L5-S1 level from a posterior approach. 7.) Insertion of a 11mm x 11mm x 26mm Tritanium PL machined titanium cage filled in the center with autograft into the L3-4 interspace for fusion of the L3-4 interspace. 8.) Insertion of a 11mm x 11mm x 26mm Tritanium PL machined titanium cage filled in the center with autograft into the L4-5 interspace for fusion of the L4-5 interspace. 9.) Insertion of a 10mm x 11mm x 26mm Tritanium PL machined titanium cage filled in the center with autograft into the L5-S1 interspace for fusion of the L5-S1 interspace. 10.) Posterolateral arthrodesis, L3-4 bilaterally in preparation for posterolateral fusion. 11.) Posterolateral arthrodesis, L4-5 bilaterally in preparation for posterolateral fusion. 12.) Posterolateral arthrodesis, L5-S1 bilaterally in preparation for posterolateral fusion. 13.) Posterolateral instrumention L3-S1 bilaterally using the Karine Lisa 3 pedicle screw and marlo system. 14.) Use of autograft harvested from the same incision, cleaned of soft tissue and morselized for the interbody and posterolateral fusion portions of the procedure. 15.) Use of 20cc of Karine Vitoss synthetic bone product (allograft ) for posterolateral fusion. 16.) Use of 5cc of Cerapedics I-factor sythetic bone product (allograft) for interbody and posterolateral fusion. 17.) Use of 20cc of Xylitol [place] BIO DBM PLUS putty w/cancellous (allograft) for interbody and posterolateral fusion. 18.) Use of intra-operative Rupeetalk neuronavigation system for placement and confirmation of the correct placement of all pedicle screws. 19.) Use of intra-operative fluoroscopy for localization of correct surgical levels and for final confirmation of the position of the intervertebral cages and final confirmation of the posterolateral hardware elements. 20.) Use of intra-operative neuromonitoring to assure correct placement of pedicle screws without close proximity to nerve structure. Surgeon: Isaiah Jeffery MD See Dr. Jeffery's postoperative note for further details of procedure. Patient Problems - Patient Problem List (1) Status post lumbar surgery Current Visit: Yes Status: Acute Code(s): Z98.890 - Other specified postprocedural states Category: Medical (2) Chronic anemia Current Visit: Yes Status: Acute Code(s): D64.9 - Anemia, unspecified Category: Medical (3) Complex regional pain syndrome Current Visit: Yes Status: Acute Qualifiers: Complex regional pain syndrome type: type I Complex regional pain syndrome affected site: unspecified Qualified Code(s): G90.50 - Complex regional pain syndrome I, unspecified Category: Medical (4) Depression Current Visit: Yes Status: Acute Code(s): F32.9 - Major depressive disorder , single episode, unspecified Qualifiers: Depression Type: other depression Qualified Code(s): F32.89 - Other specified depressive episodes Category: Medical (5) Tobacco abuse Current Visit: Yes Status: Acute Code(s): Z72.0 - Tobacco use Category: Medical (6) Tobacco abuse counseling Current Visit: Yes Status: Acute Code(s): Z71.6 - Tobacco abuse counseling Category: Medical (7) Postoperative hypotension Current Visit: Yes Status: Resolved Code(s): I95.89 - Other hypotension Category: Medical
--- NOTE | 2017-10-30 12:45 | OT.PROG ---
Progress Note Progress Note: Occupational Therapy S: Pt. reports that she is doing well. She does not want to practice car transfers but would like to go for a walk. O: Pt. was assisted in donning her brace correctly. She then ambulated 2 X 150' with SBA. Pt. is doing well with functional mobility tasks. She was educated in BLT precautions and use of brace. Pt. then required min. A to return to bed. A: Pt. demonstrated the ability to perform functional mobility tasks safely. Pt. may benefit from outpatient physical therapy upon discharge. P: Continue POC until discharge. LEIGH Valero/Claude
== END 2017-10-30 12:52 | disposition home or self-care (01) | DRG 454 ==
LOC: OPS 05:45 → MED/SURG 17:18
PROVIDERS: ADMIT Neurological Surgery; ATTEND Neurological Surgery